=== PATIENT | male | born 1960 | race Caucasian/White ===

== ENCOUNTER 2016-10-09 11:09 | Day surgery (SDC) | payer OTHER ==
[2016-10-09] MEDS ORDERED: LACTATED RINGERS 1,000 ML ONE (12:14)
[2016-10-09] MEDS ORDERED: IV START KIT ONE (12:14)
[2016-10-09] MEDS ORDERED: PROPOFOL 20 ML IV ONE ×2 (12:20→12:22)
[2016-10-09] MEDS ORDERED: FENTANYL 100 MCG/2 ML VIAL ONE (12:20)
[2016-10-09] MEDS ORDERED: FENTANYL 250 MCG/5 ML AMP IV PRN (12:56)
[2016-10-09] MEDS ORDERED: MIDAZOLAM HCL 5 MG/5 ML VIAL IV PRN (12:56)
[2016-10-09] MEDS ORDERED: LACTATED RINGERS 1,000 ML IV SCH (13:00)
== END 2016-10-09 13:51 | disposition home or self-care (01) ==
LOC: SDC 11:09
PROVIDERS: ATTEND Family Medicine
PROC: 0DJD8ZZ Inspection of Lower Intestinal Tract, Via Natural or Artificial Opening Endoscopic (ICD-10-PCS; principal; 2016-10-09)
DX: Z12.11 Encounter for screening for malignant neoplasm of colon (principal); G47.9 Sleep disorder, unspecified
CPT/HCPCS: 45378; J3010; J7120